=== PATIENT | female | born 1970 | race Caucasian/White ===

== ENCOUNTER 2022-05-09 06:28 | Day surgery (SDC) | payer SELFPAY ==
[2022-05-08 13:15] VITALS: BMI 32.5
[2022-05-09] MEDS ORDERED: ceFAZolin SODIUM 1 GM VIAL ONE (07:09)
[2022-05-09] MEDS ORDERED: GENTAMICIN SO4 80 MG/2 ML VIAL ONE (07:09)
[2022-05-09] MEDS ORDERED: VANCOMYCIN 1,000 MG VIAL (RESTRICTED TO ID ONLY) ONE (07:09)
[2022-05-09] MEDS ORDERED: BUPIVACAINE HCL/EPINEPHRINE/PF 30 ML VIAL IJ ONE (07:56)
[2022-05-09] MEDS ORDERED: SCOPOLAMINE HYDROBROMIDE 1 PATCH PATCH.TD72 ONE (08:01)
[2022-05-09] MEDS ORDERED: MIDAZOLAM HCL 2 MG/2 ML SINGLE DOSE VIAL ONE (08:01)
[2022-05-09] MEDS ORDERED: fentaNYL CITRATE 250 MCG/5 ML VIAL ONE (08:04)
[2022-05-09] MEDS ORDERED: PROPOFOL 20 ML ONE ×9 (08:05→12:23)
[2022-05-09] MEDS ORDERED: SUCCINYLCHOLINE CHLORIDE 200 MG/10 ML SYRINGE ONE (08:05)
[2022-05-09] MEDS ORDERED: ROCURONIUM BROMIDE 50 MG/5 ML SYRINGE ONE ×2 (08:05→08:51)
[2022-05-09] MEDS ORDERED: KETOROLAC TROMETHAMINE 30 MG/1 ML VIAL ONE (08:44)
[2022-05-09] MEDS ORDERED: DEXAMETHASONE SOD PHOSPHATE 4 MG/1 ML VIAL ONE (08:44)
[2022-05-09] MEDS ORDERED: LIDOCAINE HCL 2% JELLY (5 ML/TUBE) ONE (08:44)
[2022-05-09] MEDS ORDERED: ONDANSETRON 4 MG/2 ML VIAL ONE (08:44)
[2022-05-09] MEDS ORDERED: CLINDAMYCIN PHOSPHATE 600 MG/4 ML VIAL ONE ×2 (08:44→17:37)
[2022-05-09] MEDS ORDERED: HYDROmorphone HCL/PF 1 MG/ML VIAL ONE ×4 (10:29)
[2022-05-09] MEDS ORDERED: SEVOFLURANE 250 ML BTL ONE (11:27)
[2022-05-09] MEDS ORDERED: ONDANSETRON 4 MG/2 ML VIAL IVPUSH PRN ×2 (12:22→14:02)
[2022-05-09] MEDS ORDERED: PROMETHAZINE HCL 25 MG/1 ML VIAL IVPUSH PRN (12:22)
[2022-05-09] MEDS ORDERED: oxyCODONE HCL 5 MG TABLET PO PRN ×2 (12:22)
[2022-05-09] MEDS ORDERED: NITROGLYCERIN 2% OINTMENT - 1GM PACKET TD ONE (12:39)
[2022-05-09] MEDS ORDERED: ACETAMINOPHEN 325 MG TABLET (FP) PO PRN (14:02)
[2022-05-09] MEDS ORDERED: LACTATED RINGERS SOLUTION 1,000 ML IV SCH (14:15)
[2022-05-09 17:12] VITALS: TEMP 97.7
[2022-05-09 17:47] VITALS: PULSE 78
[2022-05-09] MEDS ORDERED: CLINDAMYCIN 600MG PREMIX IVPB 600 MG/50 ML BAG IVPB SCH (18:00)
[2022-05-09 18:21] VITALS: BP 123/59
== END 2022-05-09 19:20 | disposition home or self-care (01) ==
LOC: FASU 06:28
PROVIDERS: ATTEND Plastic Surgery
CPT/HCPCS: 88305-TC; 94760

== ENCOUNTER 2022-10-17 06:37 | Day surgery (SDC) | payer SELFPAY ==
[2022-10-15 13:58] VITALS: BMI 31.7
[2022-10-17] MEDS ORDERED: BUPIVACAINE HCL/EPINEPHRINE/PF 30 ML VIAL IJ ONE ×2 (07:11→12:26)
[2022-10-17] MEDS ORDERED: TETRACAINE 0.5% OPHTH SOLN 2 ML BOTTLE ONE (07:11)
[2022-10-17] MEDS ORDERED: BACITRACIN 15 GM TUBE TOPICAL OINTMENT ONE (07:12)
[2022-10-17] MEDS ORDERED: POVIDONE-IODINE 5% OPHTHALMIC PREP 30 ML SOLUTION ONE (07:12)
[2022-10-17] MEDS ORDERED: EPINEPHrine/PF 1 MG/1 ML (1:1,000) AMPULE ONE ×2 (07:26→12:26)
[2022-10-17] MEDS ORDERED: LIDOCAINE HCL 2% (20ML MULTI-DOSE VIAL) ONE ×2 (07:26→12:27)
[2022-10-17] MEDS ORDERED: SODIUM BICARBONATE 8.4% 50 MEQ/50 ML VIAL ONE ×2 (07:27→12:27)
[2022-10-17] MEDS ORDERED: ACETAMINOPHEN INJECTION 100 ML IVPB ONE (07:46)
[2022-10-17] MEDS ORDERED: SCOPOLAMINE HYDROBROMIDE 1 PATCH PATCH.TD72 ONE (07:46)
[2022-10-17] MEDS ORDERED: ROCURONIUM BROMIDE 50 MG/5 ML SYRINGE ONE (07:56)
[2022-10-17] MEDS ORDERED: CLINDAMYCIN 600MG PREMIX IVPB 600 MG/50 ML BAG IVPB ONE (08:18)
[2022-10-17] MEDS ORDERED: DEXAMETHASONE SOD PHOSPHATE 4 MG/1 ML VIAL ONE ×2 (08:20→08:21)
[2022-10-17] MEDS ORDERED: ONDANSETRON 4 MG/2 ML VIAL ONE ×2 (08:21→11:02)
[2022-10-17] MEDS ORDERED: LIDOCAINE HCL 2% 100 MG/5 ML DISP.SYRIN ONE (08:31)
[2022-10-17] MEDS ORDERED: KETOROLAC TROMETHAMINE 30 MG/1 ML VIAL ONE (08:44)
[2022-10-17] MEDS ORDERED: GLYCOPYRROLATE 0.2 MG/1 ML VIAL ONE ×2 (09:15→09:16)
[2022-10-17] MEDS ORDERED: NEOSTIGMINE METHYLSULFATE 0.5 MG/1 ML - 10 ML MDV ONE (09:15)
[2022-10-17] MEDS ORDERED: ACETAMINOPHEN 1000 MG/100 ML BAG IVPB ONE (10:06)
[2022-10-17] MEDS ORDERED: MIDAZOLAM HCL 2 MG/2 ML SINGLE DOSE VIAL ONE (10:22)
[2022-10-17] MEDS ORDERED: PROPOFOL 20 ML ONE (11:17)
[2022-10-17] MEDS ORDERED: IBUPROFEN 800 MG/8 ML IJ IVPB PRN (11:53)
[2022-10-17] MEDS ORDERED: ONDANSETRON 4 MG/2 ML VIAL IVPUSH PRN (11:53)
[2022-10-17] MEDS ORDERED: ACETAMINOPHEN 325 MG TABLET (FP) PO PRN (11:53)
[2022-10-17] MEDS ORDERED: oxyCODONE HCL 5 MG TABLET PO PRN (11:53)
[2022-10-17] MEDS ORDERED: LACTATED RINGERS SOLUTION 1,000 ML IV SCH (12:00)
[2022-10-17] MEDS ORDERED: PROMETHAZINE HCL 25 MG/1 ML VIAL IVPUSH ONE (12:00)
[2022-10-17] MEDS ORDERED: FENTANYL CITRATE/PF 50 MCG/ML VIAL ONE (12:18)
[2022-10-17 15:39] VITALS: RESP 20; TEMP 97.8
[2022-10-17 16:53] VITALS: BP 130/74; PULSE 86
== END 2022-10-17 16:50 | disposition home or self-care (01) ==
LOC: FASU 06:37
PROVIDERS: ATTEND Plastic Surgery
CPT/HCPCS: 94760

== ENCOUNTER 2024-04-08 06:23 | Inpatient (IN) | payer SELFPAY ==
[2024-04-01 11:18] VITALS: BMI 31.7
[2024-04-08] MEDS ORDERED: DEXAMETHASONE SOD PHOSPHATE 4 MG/1 ML VIAL ONE (07:06)
[2024-04-08] MEDS ORDERED: ceFAZolin SODIUM 1 GM VIAL ONE (07:06)
[2024-04-08] MEDS ORDERED: LIDOCAINE HCL/PF 2% SDV 5ML VIAL ONE (07:06)
[2024-04-08] MEDS ORDERED: PROPOFOL 20 ML ONE ×2 (07:06→12:50)
[2024-04-08] MEDS ORDERED: ROCURONIUM BROMIDE 50 MG/5 ML SYRINGE ONE (07:06)
[2024-04-08] MEDS ORDERED: ONDANSETRON 4 MG/2 ML VIAL ONE (07:06)
[2024-04-08] MEDS ORDERED: MIDAZOLAM HCL 2 MG/2 ML SINGLE DOSE VIAL ONE (07:06)
[2024-04-08] MEDS ORDERED: CLINDAMYCIN 600MG PREMIX IVPB 600 MG/50 ML BAG IVPB ONE ×2 (07:10→08:36)
[2024-04-08] MEDS ORDERED: SODIUM CHLORIDE 0.9% P/F 10 ML VIAL IJ ONE (07:26)
[2024-04-08] MEDS ORDERED: BACITRACIN ZINC 15 GM TUBE TOPICAL OINTMENT ONE (07:26)
[2024-04-08] MEDS ORDERED: EPINEPHrine/PF 1 MG/1 ML (1:1,000) AMPULE ONE ×2 (07:26→08:09)
[2024-04-08] MEDS ORDERED: BUPIVACAINE HCL/EPINEPHRINE/PF 30 ML VIAL IJ ONE ×2 (07:26→12:27)
[2024-04-08] MEDS ORDERED: LIDOCAINE HCL 2% (20ML MULTI-DOSE VIAL) ONE ×3 (07:27→10:48)
[2024-04-08] MEDS ORDERED: LIDOCAINE 1%/EPI 1:100000 (20 ML MULTI DOSE VIAL) ONE (07:27)
[2024-04-08] MEDS ORDERED: SCOPOLAMINE HYDROBROMIDE 1 PATCH PATCH.TD72 ONE (07:35)
[2024-04-08] MEDS ORDERED: SEVOFLURANE 250 ML BTL ONE (07:59)
[2024-04-08] MEDS ORDERED: HEPARIN NA (PORCINE) 5,000 UNITS/ML 1ML VIAL ONE (08:09)
[2024-04-08] MEDS: HEPARIN NA (PORCINE) 5,000 UNITS/ML 1ML VIAL SQ ONE ×2 (08:10→17:13)
[2024-04-08] MEDS: BUPIVACAINE 0.25% /EPI 1:200,000 10 ML VIAL NR ONE ×4 (08:58→12:40)
[2024-04-08] MEDS ORDERED: PROPOFOL 120 ML ONE (09:03)
[2024-04-08] MEDS ORDERED: PROPOFOL 60 ML ONE (10:38)
[2024-04-08] MEDS ORDERED: PROPOFOL 40 ML ONE (12:02)
[2024-04-08] MEDS ORDERED: GUM MASTIC/STORAX/MSAL/ALCOHOL 1 DRP DROPSBTL MC ONE (12:25)
[2024-04-08] MEDS ORDERED: BUPIVACAINE HCL/PF 2.5 MG/ML - 30 ML VIAL IJ ONE (12:28)
[2024-04-08] MEDS ORDERED: ONDANSETRON 4 MG/2 ML VIAL IVPUSH PRN (13:16)
[2024-04-08] MEDS ORDERED: PROMETHAZINE HCL 25 MG/1 ML VIAL IVPB PRN (13:18)
[2024-04-08] MEDS ORDERED: FENTANYL CITRATE/PF 50 MCG/ML VIAL ONE ×2 (13:21→14:10)
[2024-04-08] MEDS: ACETAMINOPHEN 1000 MG/100 ML BAG IVPB SCH (13:30)
[2024-04-08] MEDS ORDERED: ACETAMINOPHEN INJECTION 100 ML IVPB ONE (13:33)
[2024-04-08] MEDS ORDERED: FLUTICASONE PROP 0.05% 16 GM NASAL SPRAY NS PRN (13:40)
[2024-04-08] MEDS ORDERED: PATIENT'S OWN MEDICATION (NON-FORMULARY) (Fexofenadine Hcl [Allegra Allergy] 180 MG Tablet PO PRN (13:40)
[2024-04-08] MEDS: CLINDAMYCIN 900 MG PREMIX IVPB 900 MG/50 ML BAG IVPB SCH (17:13)
[2024-04-08] MEDS: LACTATED RINGERS SOLUTION 1,000 ML IV SCH (19:40)
[2024-04-08] MEDS ORDERED: PATIENT'S OWN MEDICATION (NON-FORMULARY) (Lifitegrast [Xiidra] 1 EACH Droperette) OU SCH (22:00)
[2024-04-09] MEDS: oxyCODONE HCL 5 MG TABLET PO PRN (00:11)
[2024-04-09 01:52] VITALS: RESP 18
[2024-04-09] MEDS: ONDANSETRON 4 MG/2 ML VIAL IVPUSH PRN (07:07)
[2024-04-09] MEDS: HEPARIN NA (PORCINE) 5,000 UNITS/ML 1ML VIAL SQ ONE (11:42)
[2024-04-09] MEDS: PANTOPRAZOLE 20 MG TABLET PO SCH (11:42)
[2024-04-09] MEDS: ACETAMINOPHEN 500 MG TABLET (FP) PO SCH (11:43)
[2024-04-09 11:44] VITALS: BP 106/62; PULSE 68; TEMP 98
== END 2024-04-09 14:45 | disposition home or self-care (01) | DRG 361 ==
LOC: FASUSAT 06:23 → FM/S 13:32
PROVIDERS: ADMIT Plastic Surgery; ATTEND Plastic Surgery
PROC: 0J0L0ZZ Alteration of Right Upper Leg Subcutaneous Tissue and Fascia, Open Approach (ICD-10-PCS; 2024-04-08)
PROC: 0J0P3ZZ Alteration of Left Lower Leg Subcutaneous Tissue and Fascia, Percutaneous Approach (ICD-10-PCS; 2024-04-08)
PROC: 0J0N3ZZ Alteration of Right Lower Leg Subcutaneous Tissue and Fascia, Percutaneous Approach (ICD-10-PCS; 2024-04-08)
PROC: 4A11X4G Monitoring of Peripheral Nervous Electrical Activity, Intraoperative, External Approach (ICD-10-PCS; 2024-04-08)
PROC: 0HBCXZZ Excision of Left Upper Arm Skin, External Approach (ICD-10-PCS; principal; 2024-04-08 09:03)
PROC: 0J0M0ZZ Alteration of Left Upper Leg Subcutaneous Tissue and Fascia, Open Approach (ICD-10-PCS; 2024-04-08 09:03)
DX: Z41.1 Encounter for cosmetic surgery (principal)
CPT/HCPCS: 94760; J0131; J1644